=== PATIENT | female | born 1990 | race Caucasian/White ===

== ENCOUNTER 2017-04-19 13:21 | Emergency (ER) | payer BC, OTHER ==
[~2017-04-19] VITALS: Ht 162.6 cm; Wt 95.3 kg
[2017-04-19 13:28] VITALS: BP 120/62
--- NOTE | 2017-04-19 13:52 | PHYS DOC ---
Past Medical History Past Medical History: Anxiety Past Surgical History: No Surgical History Alcohol Use: Occasionally Drug Use: None Adult General Chief Complaint Chief Complaint: LOWEREXTREMITY INJURY [facility] HPI Patient is a 26 year old female presents to the emergency department stating that she had a close night out last night when she was dancing and felt a pop in her left knee. Patient states that she's had left knee problems in the past in which she has torn her ACL. Patient states that she has been having increased pain and discomfort with ambulation she has however been wearing her brace since the incident happened issue and was able to get in contact with her. She states that whenever she tries to stand on this like she has increased pain. She states she is unable to find her crutches at home. She has been taken ibuprofen with the last dose being at 10:00 today at with 800 mg taken. Patient denies any numbness or tingling into the foot area. Review of Systems Review of Systems Constitutional: Denies fever or chills [] Eyes: Denies change in visual acuity, redness, or eye pain [] HENT: Denies nasal congestion or sore throat [] Respiratory: Denies cough or shortness of breath [] Cardiovascular: No additional information not addressed in HPI [] GI: Denies abdominal pain, nausea, vomiting, bloody stools or diarrhea [] : Denies dysuria or hematuria [] Musculoskeletal: Denies back pain. Complaint of left knee pain and discomfort Integument: Denies rash or skin lesions [] Neurologic: Denies headache, focal weakness or sensory changes [] Endocrine: Denies polyuria or polydipsia [] Allergies Allergies Allergies Coded Allergies Type Severity Reaction Last Updated Verified Penicillins Allergy Intermediate 02/05/14 No Physical Exam Physical Exam Constitutional: Well developed, well nourished, no acute distress, non-toxic appearance. [] HENT: Normocephalic, atraumatic, bilateral external ears normal, oropharynx moist, no oral exudates, nose normal. [] Eyes: PERRLA, EOMI, conjunctiva normal, no discharge. [] Neck: Normal range of motion, no tenderness, supple, no stridor. [] Cardiovascular:Heart rate regular rhythm, no murmur [] Lungs & Thorax: Bilateral breath sounds clear to auscultation [] Skin: Warm, dry, no erythema, no rash. [] Back: No tenderness Extremities: Left medial knee tenderness, no cyanosis, no clubbing, ROM intact, no edema. No bruising, no discoloration noted. No deformity noted. Peripheral pulses 2+ cap refill brisk less than 2 seconds. Neurologic: Alert and oriented X 3, normal motor function, normal sensory function, no focal deficits noted. [] Psychologic: Affect normal, judgement normal, mood normal. [] Current Patient Data Vital Signs Vital Signs Date Time Temp Pulse Resp B/P (MAP) Pulse Ox O2 Delivery O2 Flow Rate FiO2 04/19/17 13:28 98.0 89 16 100 Room Air 98.0 EKG EKG [] Radiology/Procedures Radiology/Procedures [][facility] [address] [place] [address] IMAGING REPORT Signed PATIENT: DOMENIC WILKS ACCOUNT: [id number] : 1990 LOCATION: ER AGE: 26 SEX: F EXAM STATUS: REG ER ORD. PHYSICIAN: ADONAY SOLER APRN REASON: pain and discomfort after dancing feels is popped out of place PROCEDURE: KNEE LEFT 4V 4 view radiographs of the left knee 04/19/2017 Clinical history: Twisting injury to the left knee. AP, lateral, oblique and sunrise digital radiographs of the left knee were obtained. Comparison study is dated 12/03/2014. Surgical changes are seen consistent with an ACL reconstruction. No fracture or dislocation of the left knee is seen. There is a [id number]-us-[id number] sized left suprapatellar joint effusion. Impression: No fracture or dislocation of the left knee is seen. DICTATED and SIGNED BY: VU MARSH MD DATE: 04/19/17 1417 CC: ADONAY SOLER APRN; NON,STAFF; UNKNOWN PCP NAME ~ Course & Med Decision Making Course & Med Decision Making Pertinent Labs and Imaging studies reviewed. (See chart for details) X-rays were negative for any bony abnormalities per radiologist. Patient has her own knee splint. She does state that she is unable to find her crutches however she has increased pain with ambulation. Crutches will be provided for her here in the emergency department. Recommended ice packs on 20 minutes off 20 minutes several times a day. Elevation as much as possible. Tylenol or ibuprofen or Aleve for pain and discomfort. Patient will be provided with orthopedic name and number to follow up with. Patient agrees with discharge instructions, treatment regimens and follow-up recommendations. All questions for this patient has been answered at her bedside. [] Dragon Disclaimer Dragon Disclaimer This electronic medical record was generated, in whole or in part, using a voice recognition dictation system. Departure Departure Impression: Primary Impression: Left knee pain Disposition: HOME, SELF-CARE Condition: STABLE Referrals: GARCIA DODD DO (PCP) MELVI SINGH MD Patient Instructions: Knee Pain, [id number] Additional Instructions: Continue to wear your knee brace in which you have. Use the crutches to help with ambulation today follow-up with orthopedic. Ice packs on 20 minutes off 20 minutes several times a day. Elevation as much as possible. You may take ibuprofen or Aleve, or Tylenol for pain and discomfort. Follow-up with orthopedic within the week. Return to emergency prior signs symptoms of become worse. ADONAY SOLER APRN Apr 19, 2017 13:52
--- NOTE | 2017-04-19 14:21 | RAD ---
4 view radiographs of the left knee 04/19/2017 Clinical history: Twisting injury to the left knee. AP, lateral, oblique and sunrise digital radiographs of the left knee were obtained. Comparison study is dated 12/03/2014. Surgical changes are seen consistent with an ACL reconstruction. No fracture or dislocation of the left knee is seen. There is a [id number] sized left suprapatellar joint effusion. Impression: No fracture or dislocation of the left knee is seen.
== END 2017-04-19 14:39 | disposition home or self-care (01) ==
LOC: ER 13:21
DX: M25.562 Pain in left knee (principal); F41.9 Anxiety disorder, unspecified; Z88.0 Allergy status to penicillin
CPT/HCPCS: 73564; 99284